=== PATIENT | male | born 1985 | race Caucasian/White ===

== ENCOUNTER → 2016-03-14 | Outpatient (CLI) | payer OTHER ==
[~2016-03-14] MED LIST: ZCR40 PO
--- NOTE | 2016-03-14 08:55 | DIAGNOSTIC IMAGING REPORT ---
RIGHT FOOT 3 VIEWS CLINICAL HISTORY: Foot pain. FINDINGS: 3 views of the right foot are obtained. No prior studies are available for comparison at the time of dictation. The skeletal structures are well mineralized. No acute fracture is seen. There is cortical thickening seen involving the mid shaft of the second metatarsal. No periosteal reaction is seen. The joint spaces of the foot appear well-maintained. There is a tiny dorsal calcaneal enthesophyte. The overlying soft tissues are within normal limits. IMPRESSION: 1. Cortical thickening is seen involving the mid shaft of the second metatarsal. This could represent the sequelae of remote trauma or a healed stress fracture. Clinical correlation will be essential. Correlation with any prior outside imaging studies is recommended. Consider short-term radiographic follow-up for reassessment if pain persists. 2. No acute fracture is identified. Electronically signed by: Michael Toure M.D. 03/14/2016 8:54 AM Dictated Date/Time: 03/14/2016 8:52 AM
[2016-03-14 11:07] LABS: BASO % 0.3 %; BASO ABS # 0.02 K/uL (0-0.2); COMPLETE YES; EOS % 1.2 %; HEMATOCRIT 40.3 % (42-52); IG% 0.2 %; LYMPH % 36.9 %; LYMPH ABS # 2.16 K/uL (1.2-3.4); MEAN CELL VOLUME 87.4 fL (80-100); MEAN CORPUSCULAR HEMOGLOBIN 30.4 pg (25-34); MEAN CORPUSCULAR HGB CONC 34.7 g/dl (32-36); MEAN PLATELET VOLUME 11.4 fL (7.4-10.4); MONO % 5.6 %; NEUT % 55.8 %; PLATELET COUNT 167 K/uL (130-400); RED BLOOD COUNT 4.61 M/uL (4.7-6.1); WHITE BLOOD COUNT 5.86 K/uL (4.8-10.8)
[2016-03-14 12:15] LABS: LYME DISEASE AB IGG NEG (NEG); LYME DISEASE AB IGM NEG (NEG)
[2016-03-14 13:21] LABS: BLOOD UREA NITROGEN 18 mg/dl (7-18); BUN/CREATININE RATIO 20.1 (10-20); C-REACTIVE PROTEIN < 0.29 mg/dl (0-0.29); CALCIUM 8.6 mg/dl (8.5-10.1); CARBON DIOXIDE 23 mmol/L (21-32); CHLORIDE 109 mmol/L (98-107); CREATININE 0.91 mg/dl (0.60-1.40); GLUCOSE 93 mg/dl (70-99); SODIUM 143 mmol/L (136-145); URIC ACID 7.7 mg/dl (2.6-7.2)
== END | disposition home or self-care (01) ==
LOC: C.RADBC 08:19
PROVIDERS: ATTEND Nurse Practitioner Family
DX: M79.671 Pain in right foot (principal); R93.7 Abnormal findings on diagnostic imaging of other parts of musculoskeletal system

== ENCOUNTER → 2016-05-02 | Outpatient (CLI) | payer OTHER ==
[2016-05-02 11:19] LABS: ALT/SGPT 57 U/L (12-78); AST/SGOT 19 U/L (15-37); BLOOD UREA NITROGEN 14 mg/dl (7-18); BUN/CREATININE RATIO 14.5 (10-20); CALCIUM 8.7 mg/dl (8.5-10.1); CARBON DIOXIDE 30 mmol/L (21-32); CHLORIDE 108 mmol/L (98-107); CREATININE 0.99 mg/dl (0.60-1.40); GLUCOSE 101 mg/dl (70-99); POTASSIUM 4.3 mmol/L (3.5-5.1); SODIUM 143 mmol/L (136-145)
[2016-05-02 11:22] LABS: ALB/GLOB RATIO 1.3 (0.9-2); ALKALINE PHOSPHATASE 69 U/L (45-117); CHOLESTEROL 123 mg/dl (0-200); HDL CHOLESTEROL 41 mg/dl; LDL CHOLESTEROL CALCULATED 47 mg/dl; TRIGLYCERIDES 174 mg/dl (0-150); VERY LOW DENSITY LIPOPROT CALC 35 mg/dl
== END | disposition home or self-care (01) ==
LOC: C.LABBC 08:28
PROVIDERS: ATTEND Family Medicine
DX: E78.5 Hyperlipidemia, unspecified (principal); Z83.2 Family history of diseases of the blood and blood-forming organs and certain disorders involving the immune mechanism

== ENCOUNTER → 2016-06-08 | Day surgery (SDC) | payer OTHER ==
[2016-05-31 15:06] VITALS: BMI 26.0
[~2016-06-08] VITALS: Ht 172.7 cm; Wt 77.3 kg
[~2016-06-08] MED LIST changes: +LIDOCAINE HCL 2% 2 ML VIAL (20MG/ML) ONE; +MIDAZOLAM HCL 1 MG/ML 2ML VIAL ONE; +PROPOFOL IV EMULSION 10 MG/ML 20 ML VIAL IV ONE; +SODIUM CHLORIDE 0.9% 500ML 500 ML IV ONE
[2016-06-08 10:57] VITALS: Ht 172.7 cm; Wt 77.3 kg
--- NOTE | 2016-06-08 11:29 | Endo History and Physical ---
History & Physical Date of Service: Jun 08, 2016. Chief Complaint: COLITIS Referring Physician: KHAI GALO History of Present Illness 30 yo CM who presents for colonoscopy secondary to colitis. Past Surgical History Hx Cardiac Surgery: No Hx Internal Defibrillator: No Hx Pacemaker: No Hx Abdominal Surgery: Yes (RT/LT INGUINAL HERNIA REPAIR) Hx of Implantable Prosthesis: No Hx Post-Op Nausea and Vomiting: No Hx Cancer Surgery: No Hx Thoracic Surgery: No Hx Orthopedic: No Hx Urinary Tract Surgery: No Family History IBD Social History Smoking Status: Never Smoker Hx Substance Use: No Hx Alcohol Use: Yes (OCCASIONAL) Allergies Coded Allergies: No Known Allergies (Verified , 06/08/16) Current Medications Reported Home Medications Medications Dose Route/Sig Max Daily Dose Days Date Category Simvastatin 40 Mg Tab 40 Mg PO QPM 09/16/13 Reported Vital Signs Weight (Kilograms): 77.27 Height (Feet): 5 Height (Inches): 8 Date Time Temp Pulse Resp B/P Pulse Ox O2 Delivery O2 Flow Rate FiO2 06/08/16 11:00 36.7 94 20 137/80 97 Room Air Physical Exam General Appearance: WD/WN, no apparent distress Respiratory/Chest: Auscultation: breath sounds normal Cardiovascular: Heart Auscultation: RRR Abdomen: Bowel Sounds: normal Inspection & Palpation: soft, non-distended, no tenderness, guarding & rebound Assessment and Plan Assessment: 30 yo CM who presents for colonoscopy secondary to colitis. Plan: Proceed with colonoscopy.
--- NOTE | 2016-06-08 12:02 | Discharge Instructions ---
Endoscopy Patient Instructions Date / Procedure(s) Performed Jun 08, 2016. Colonoscopy Allergy Information Coded Allergies: No Known Allergies (Verified , 06/08/16) Discharge Date / Findings Jun 08, 2016. Normal colonoscopy with random colon biopsies Medication Instructions OK to resume all medications today as prescribed Reported Home Medications Medications Dose Route/Sig Max Daily Dose Days Date Category Simvastatin 40 Mg Tab 40 Mg PO QPM 09/16/13 Reported Provider Instructions Activity Restrictions - No exercising or heavy lifting for 24 hours. - Do not drink alcohol the day of the procedure. - Do not drive a car or operate machinery until the day after the procedure. - Do not make any important decisions or sign important papers in 24 hours after the procedure. Following Day: - Return to full activity which may include returning to work/school. Diet Start your diet with liquids and light foods (jello, soup, juice, toast). Then eat your usual diet if not nauseated. Treatment For Common After Affects For mild abdominal pain, bloating, or excessive gas: - Rest - Eat lightly - Lie on right side Follow-Up Information Follow-up with KHAI GALO as scheduled Anesthesia Information What You Should Know You have had a procedure that required some medicine to reduce anxiety and discomfort. This treatment is called moderate sedation. After receiving the treatment, you may be sleepy, but you will be able to breathe on your own. The effects of the treatment may last for several hours. Follow these instructions along with Activity/Diet recommendations noted above: * Do NOT do anything where dizziness or clumsiness would be dangerous. * Rest quietly at home today, then you can be up and about tomorrow. * Have a responsible person stay with you the rest of today. * You may have had an I.V. today. If so, you may take the dressing off later today. Recommendations Call your doctor if: * Trouble breathing * Continuous vomiting for more than 24 hours * Temperature above 101 degrees * Severe abdominal pain or bloating * Pain not relieved by pain medicine ordered * There is increased drainage or redness from any incision * A large amount of rectal bleeding greater than 2-3 tablespoons. (If you had a polyp/s removed or have hemorrhoids, a small amount of blood - from the rectum is to be expected.) * You have any unanswered questions or concerns. IN THE EVENT OF A SERIOUS EMERGENCY, GO TO THE NEAREST EMERGENCY ROOM Your discharge instructions were prepared by provider Da Roman. Patient Instructions Signature Page Mahad Nuno Patient (or Guardian) Signature/Date: I have read and understand the instructions given to me by my caregivers. Caregiver/RN/Doctor Signature/Date: The above-named patient and/or guardian has received patient instructions on this date. + Original Patient Signature Page (only) stays with chart. Please make copy for patient.
--- NOTE | 2016-06-08 12:10 | GI REPORT ---
Procedure Date: 06/08/2016 11:41 AM Procedure: Colonoscopy Indications: Follow-up of colitis Medicines: Monitored Anesthesia Care Complications: No immediate complications. Estimated Blood Loss: Estimated blood loss: none. Procedure: Pre-Anesthesia Assessment: - Prior to the procedure, a History and Physical was performed, and patient medications and allergies were reviewed. The patient's tolerance of previous anesthesia was also reviewed. The risks and benefits of the procedure and the sedation options and risks were discussed with the patient. All questions were answered, and informed consent was obtained. Prior Anticoagulants: The patient has taken no previous anticoagulant or antiplatelet agents. ASA Grade Assessment: II - A patient with mild systemic disease. After reviewing the risks and benefits, the patient was deemed in satisfactory condition to undergo the procedure. After I obtained informed consent, the scope was passed under direct vision. Throughout the procedure, the patient's blood pressure, pulse, and oxygen saturations were monitored continuously. The scope was introduced through the anus and advanced to the terminal ileum. The colonoscopy was performed without difficulty. The patient tolerated the procedure well. The quality of the bowel preparation was good. The ileocecal valve, appendiceal orifice, and rectum were photographed. Findings: The colon (entire examined portion) appeared normal. Several random biopsies were obtained with cold forceps for histology in the entire colon. Impression: - The entire examined colon is normal. - Several random biopsies were obtained in the entire colon. Recommendation: - Resume previous diet. - Continue present medications. - Repeat colonoscopy for surveillance based on pathology results. - Return to primary care physician as previously scheduled. Da Roman DO 06/08/2016 12:08:48 PM This report has been signed electronically. Note Initiated On: 06/08/2016 11:41 AM I attest to the content of the Intraoperative Record and orders documented therein, exceptions below
[2016-06-08 12:47] VITALS: BP 111/79; PULSE 86; O2SAT 100
--- NOTE | 2016-06-08 13:33 | Anesthesiology Progress Note ---
Anesthesia Post Op Note Date & Time Jun 08, 2016 at 13:32 Vital Signs Pain Intensity: 0 Vital Signs Past 12 Hours Date Time Temp Pulse Resp B/P Pulse Ox O2 Delivery O2 Flow Rate FiO2 06/08/16 12:47 86 20 111/79 100 Room Air 06/08/16 12:32 86 20 108/72 100 Room Air 06/08/16 12:16 89 20 100/72 96 Room Air 06/08/16 12:01 36.7 94 20 107/70 96 Room Air 06/08/16 11:00 36.7 94 20 137/80 97 Room Air Notes Mental Status: alert / awake / arousable, participated in evaluation Pt Amnestic to Procedure: Yes Nausea / Vomiting: adequately controlled Pain: adequately controlled Airway Patency, RR, SpO2: stable & adequate BP & HR: stable & adequate Hydration State: stable & adequate Anesthetic Complications: no major complications apparent
== END | disposition home or self-care (01) ==
LOC: C.GI 10:47
PROVIDERS: ATTEND Internal Medicine
DX: K52.9 Noninfective gastroenteritis and colitis, unspecified (principal); Z79.899 Other long term (current) drug therapy

== ENCOUNTER → 2016-11-21 | Outpatient (CLI) | payer OTHER ==
[~2016-11-21] MED LIST changes: -LIDOCAINE HCL 2% 2 ML VIAL (20MG/ML) ONE; -MIDAZOLAM HCL 1 MG/ML 2ML VIAL ONE; -PROPOFOL IV EMULSION 10 MG/ML 20 ML VIAL IV ONE; -SODIUM CHLORIDE 0.9% 500ML 500 ML IV ONE
[2016-11-21 12:28] LABS: BASO % 0.6 %; BASO ABS # 0.04 K/uL (0-0.2); COMPLETE YES; IG% 0.3 %; LYMPH % 37.1 %; LYMPH ABS # 2.49 K/uL (1.2-3.4); MEAN CELL VOLUME 88.2 fL (80-100); MEAN CORPUSCULAR HEMOGLOBIN 30.9 pg (25-34); MEAN PLATELET VOLUME 11.2 fL (7.4-10.4); PLATELET COUNT 199 K/uL (130-400); RED BLOOD COUNT 4.76 M/uL (4.7-6.1); WHITE BLOOD COUNT 6.72 K/uL (4.8-10.8)
[2016-11-21 13:08] LABS: ALT/SGPT 60 U/L (12-78); AST/SGOT 19 U/L (15-37); BLOOD UREA NITROGEN 18 mg/dl (7-18); BUN/CREATININE RATIO 20.8 (10-20); CALCIUM 9.2 mg/dl (8.5-10.1); CARBON DIOXIDE 23 mmol/L (21-32); CHLORIDE 109 mmol/L (98-107); CHOLESTEROL 209 mg/dl (0-200); CREATININE 0.88 mg/dl (0.60-1.40); GLUCOSE 104 mg/dl (70-99); POTASSIUM 4.5 mmol/L (3.5-5.1); SODIUM 140 mmol/L (136-145)
[2016-11-21 13:14] LABS: ALB/GLOB RATIO 1.3 (0.9-2); ALKALINE PHOSPHATASE 72 U/L (45-117); HDL CHOLESTEROL 42 mg/dl; LDL CHOLESTEROL CALCULATED 122 mg/dl; TRIGLYCERIDES 223 mg/dl (0-150); VERY LOW DENSITY LIPOPROT CALC 45 mg/dl
== END | disposition home or self-care (01) ==
LOC: C.LABPVFM 09:51
PROVIDERS: ATTEND Family Medicine
DX: Z00.00 Encounter for general adult medical examination without abnormal findings (principal); E78.5 Hyperlipidemia, unspecified

== ENCOUNTER 2019-10-10 22:50 | Observation (INO) ==
[2019-10-10] MEDS ORDERED: lisinopriL 10 MG TAB PO STA (23:03)
--- NOTE | 2019-10-10 23:07 | Emergency Department Note ---
History of Present Illness General Chief Complaint: Chest Pain Stated Complaint: CHEST PAINS & CHEST DISCOMFORT Time Seen by Provider: 10/10/19 22:54 Source: patient, family, RN notes reviewed and old records reviewed Mode of arrival: ambulatory Limitations: no limitations History of Present Illness Provider Complaint: chest pain Onset (ago): hour(s) greater than 10 Time: 12:00 Duration: now resolved Onset: during rest and after eating Pain Location: left chest Pain Radiation: LUE Severity: moderate Maximum Pain Intensity: 0 Current Pain Intensity: 0 Quality: + heaviness Relieved By: + nothing Exacerbated By: + nothing Context: no recent illness, no recent surgery, no recent immobilization, no recent travel, no trauma/injury and no new medications Associated symptoms: + nausea and + diaphoresis; no dyspnea and no palpitations Treatments prior to arrival: none This is a 34-year-old male who presents emergency department complaining of left-sided chest pain that radiated into his left arm. The patient reports the pain started while he was eating lunch sitting at his desk approximate 11 hours ago. He reports the pain lasted for approximately 2 to 3 hours and resolved. He has not had the pain since. He describes the pain as a pressure. He reports nothing made the pressure better or worse. Home Medications Home Medications Medication Instructions Recorded Confirmed Type simvastatin 40 mg tablet 40 mg PO DAILY #90 tab 08/06/19 10/10/19 Rx Allergies Allergy/AdvReac Type Severity Reaction Status Date / Time No Known Allergies Allergy Unverified 10/10/19 22:59 Past Med/Surg History Medical History Dyslipidemia Hemorrhoids Surgical History History of inguinal hernia repair Family History Uncle Cardiac disorder Family/Other Crohn's disease Cousin Sister Factor V Leiden mutation Father Hyperlipidemia Grandfather (Paternal) Myocardial infarction Denies family history of Ovarian cancer Prostate cancer Breast cancer Colorectal cancer Social History Smoking Status: Never smoker Hx Alcohol Use: Yes Hx Substance Use: No marital status: Current Living Situation: Spouse and Family current occupational status: employed Feels Safe at Home: Yes Dental Care, Regularly: Yes Seatbelt Use: always Sunscreen Use: No Review of Systems A total of 10 systems reviewed and were otherwise negative Physical Exam Vital Signs Vital Signs - 24 hr 10/10/19 22:50 10/10/19 23:05 10/10/19 23:30 Temperature 37.0 C Temperature Source Oral Pulse Rate 85 92 H 100 H Pulse Rate from SpO2 Sensor 91 H 94 H Pulse Rhythm Regular Respiratory Rate 18 21 18 Respiratory Effort / Characteristics Non-Labored Spontaneous Respiratory Depth Normal Respiratory Pattern Regular Blood Pressure 186/113 H 164/113 H 157/118 H Blood Pressure Mean 137 137 127 Pulse Oximetry 100 97 97 Oxygen Delivery Method Room Air Room Air Sepsis Recent Fever Within 48 Hours No Sepsis New/Unexplained Change in Mental Status N/A Sepsis Action Taken by Nursing No Action Required 10/11/19 00:00 10/11/19 00:30 10/11/19 01:00 Temperature Temperature Source Pulse Rate 89 93 H 81 Pulse Rate from SpO2 Sensor 91 H 83 Pulse Rhythm Respiratory Rate 23 20 21 Respiratory Effort / Characteristics Respiratory Depth Respiratory Pattern Blood Pressure 153/109 H 137/99 129/94 Blood Pressure Mean 121 105 106 Pulse Oximetry 96 96 Oxygen Delivery Method Sepsis Recent Fever Within 48 Hours Sepsis New/Unexplained Change in Mental Status Sepsis Action Taken by Nursing 10/11/19 01:31 Temperature Temperature Source Pulse Rate 79 Pulse Rate from SpO2 Sensor 79 Pulse Rhythm Respiratory Rate 20 Respiratory Effort / Characteristics Respiratory Depth Respiratory Pattern Blood Pressure 128/87 Blood Pressure Mean 107 Pulse Oximetry 97 Oxygen Delivery Method Sepsis Recent Fever Within 48 Hours Sepsis New/Unexplained Change in Mental Status Sepsis Action Taken by Nursing VITAL SIGNS - Vital signs and nursing notes were reviewed. GENERAL - 34-year-old male appearing stated age who is in no acute distress. Communicates well with provider and answers questions appropriately. SKIN - Without rashes. HEAD - NC/AT. EYES - PERRL with EOMI bilaterally. Sclera anicteric. Palpebral conjunctiva pink and moist with no injection noted. EARS - No deformities of external structures noted on gross examination bilaterally. No pain elicited with palpation of the tragus bilaterally. External auditory canals without discharge or otorrhea. Tympanic membranes pearly vivar without retraction or bulging. No fluid or purulent material visualized behind the TM. Handle of malleus, umbo, cone of light, pars tensa/flaccid all easily visualized. NOSE - Midline and without cyanosis. No epistaxis or purulent drainage noted. Septum midline without deviation or septal hematoma noted. MOUTH/OROPHARYNX - Without perioral cyanosis. Buccal mucosa pink and moist and without leukoplakia. Tongue midline with equal elevation of palate bilaterally. No tonsillar hypertrophy, erythema, or exudates noted. dentition noted. NECK - Neck with FROM. Supple to palpation. lymphadenopathy noted. No nuchal rigidity. LUNGS - Chest wall symmetric without accessory muscle use, intercostals retractions, or central cyanosis. Normal vesicular breath sounds CTA B/L. No wheezes, rales, or rhonchi appreciated. CARDIAC - RRR with S1/S2. No murmur, rubs, or gallops appreciated. ABDOMEN - Abdominal contour without pulsations or visible masses. BS norm oactive all four quadrants. No tenderness, palpable masses, hepatosplenomegaly, or ascites noted. EXTREMITIES - No clubbing or peripheral cyanosis. No pretibial edema present. +3/5 radial, posterior tibial, and dorsalis pedis pulses palpated throughout. +5/5 strength noted in UE/LE bilaterally. NEUROLOGIC - Cranial nerves II through XII grossly intact. Sensory intact to light touch throughout. Patellar reflexes +2/4. PSYCH - A&Ox3 and cooperates fully with examiner. Pt is very pleasant and in teracts well with examiner. Course Administered Medications Discontinued Medications Lisinopril (Lisinopril 10 Mg Tab) 10 mg PO NOW STA Stop: 10/10/19 23:04 Last Admin: 10/10/19 23:11 Dose: 10 mg Documented by: [id number] Medical Decision Making Differential Diagnosis + pneumothorax, + unstable angina pectoris, + atypical chest pain, + costochondritis, + chest pain, + myocarditis, + pericarditis, + pulmonary embolism and + pneumonia Medical Records Attestation: I reviewed the patient's medical records. Home Medications Current Medication List: was personally reviewed by me Laboratory Data Result diagrams: 10/10/19 23:05 10/10/19 23:05 Labs: Lab Results 10/10/19 10/10/19 10/10/19 Range/Units 23:05 23:05 23:05 WBC 8.47 (4.8-10.8) K/uL RBC 4.84 (4.7-6.1) M/uL Hgb 15.3 (14.0-18.0) g/dL Hct 43.4 (42-52) % MCV 89.7 (80-100) fL MCH 31.6 (25-34) pg MCHC 35.3 (32-36) g/dL RDW Std Deviation 41.7 (36.4-46.3) fL RDW Coeff of Kimberly 12.7 (11.5-14.5) % Plt Count 202 (130-400) K/uL MPV 11.0 H (7.4-10.4) fL Immature Gran % (Auto) 0.1 % Neut % (Auto) 48.1 % Lymph % (Auto) 41.8 % [place] % (Auto) 8.3 % Eos % (Auto) 1.2 % Baso % (Auto) 0.5 % Neut # (Auto) 4.08 (1.4-6.5) K/uL Lymph # (Auto) 3.54 H (1.2-3.4) K/uL [place] # (Auto) 0.70 H (0.11-0.59) K/uL Eos # (Auto) 0.10 (0-0.5) K/uL Baso # (Auto) 0.04 (0-0.2) K/uL Immature Gran # (Auto) 0.01 (0.00-0.02) K/uL PT 10.0 (9.0-12.0) Seconds INR 0.9 (0.9-1.1) APTT 26.8 (21.0-31.0) Seconds PTT Ratio 1.0 D-Dimer < 190 (0-500) ug/L FEU Sodium 140 (136-145) mmol/L Potassium 3.8 (3.5-5.1) mmol/L Chloride 107 (98-107) mmol/L Carbon Dioxide 26 (21-32) mmol/L Anion Gap 7.0 (3-11) BUN 16 (7-18) mg/dl Creatinine 1.05 (0.6-1.4) mg/dl Est Cr Clr Drug Dosing 95.0 ml/min Est GFR ( Amer) 106.1 Est GFR (Non-Af Amer) 91.5 BUN/Creatinine Ratio 15.0 (10-20) Glucose 110 H (70-99) mg/dl Calcium 9.9 (8.5-10.1) mg/dl Total Bilirubin 0.3 (0.2-1) mg/dl AST 37 (15-37) U/L ALT 105 H (12-78) U/L Alkaline Phosphatase 82 (45-117) U/L Total Creatine Kinase 106 (39-308) U/L CK-MB (CK-2) < 1.0 (0.5-3.6) ng/ml CK/CKMB % Calc TNP Troponin I < 0.015 (0-0.045) ng/ml Total Protein 8.6 H (6.4-8.2) gm/dl Albumin 4.7 (3.4-5.0) gm/dl Globulin 3.9 (2.5-4.0) gm/dl Albumin/Globulin Ratio 1.2 (0.9-2) Lipase 92 (73-393) U/L Lyme Disease IgG Ab (Negative) Lyme Disease IgM Ab (Negative) 10/10/19 10/11/19 Range/Units 23:05 00:36 WBC (4.8-10.8) K/uL RBC (4.7-6.1) M/uL Hgb (14.0-18.0) g/dL Hct (42-52) % MCV (80-100) fL MCH (25-34) pg MCHC (32-36) g/dL RDW Std Deviation (36.4-46.3) fL RDW Coeff of Kimberly (11.5-14.5) % Plt Count (130-400) K/uL MPV (7.4-10.4) fL Immature Gran % (Auto) % Neut % (Auto) % Lymph % (Auto) % [place] % (Auto) % Eos % (Auto) % Baso % (Auto) % Neut # (Auto) (1.4-6.5) K/uL Lymph # (Auto) (1.2-3.4) K/uL [place] # (Auto) (0.11-0.59) K/uL Eos # (Auto) (0-0.5) K/uL Baso # (Auto) (0-0.2) K/uL Immature Gran # (Auto) (0.00-0.02) K/uL PT (9.0-12.0) Seconds INR (0.9-1.1) APTT (21.0-31.0) Seconds PTT Ratio D-Dimer (0-500) ug/L FEU Sodium (136-145) mmol/L Potassium (3.5-5.1) mmol/L Chloride (98-107) mmol/L Carbon Dioxide (21-32) mmol/L Anion Gap (3-11) BUN (7-18) mg/dl Creatinine (0.6-1.4) mg/dl Est Cr Clr Drug Dosing ml/min Est GFR ( Amer) Est GFR (Non-Af Amer) BUN/Creatinine Ratio (10-20) Glucose (70-99) mg/dl Calcium (8.5-10.1) mg/dl Total Bilirubin (0.2-1) mg/dl AST (15-37) U/L ALT (12-78) U/L Alkaline Phosphatase (45-117) U/L Total Creatine Kinase (39-308) U/L CK-MB (CK-2) (0.5-3.6) ng/ml CK/CKMB % Calc Troponin I < 0.015 (0-0.045) ng/ml Total Protein (6.4-8.2) gm/dl Albumin (3.4-5.0) gm/dl Globulin (2.5-4.0) gm/dl Albumin/Globulin Ratio (0.9-2) Lipase (73-393) U/L Lyme Disease IgG Ab Negative (Negative) Lyme Disease IgM Ab Negative (Negative) Imaging Data Chest x-ray: Attestation: I personally reviewed and interpreted this imaging study as follows: My impression: 1 view the chest was interpreted by me shows no evidence of pneumonia congestion or pneumothorax. ECG Data Attestation: I personally reviewed and interpreted this ECG as follows: Indication: chest pain Rate (beats per minute): 96 Rhythm: normal sinus Findings: no ST depression and no ST elevation Comparison ECG Date: from (10/18/2015) Change: no significant change Additional Comments: Repeat EKG shows a normal sinus rhythm normal EKG no ST elevation or depression QTC is 442 ventricular rate is 80. This is unchanged from the previous EKG. MDM Narrative Patient was seen and evaluated as above in room A3. Review was performed of nursing notes and vital signs. I did review pertinent previous visits and patient history. After obtaining a thorough history and physical examination the above work up was performed. This is a 34-year-old male who presents emergency department complaining of chest pain that occurred several hours ago. In addition the patient's blood pressure is also grossly elevated. He was given lisinopril for his blood pressure. Serial EKGs as well as serial troponins were drawn on this patient in the emergency department. His Lyme test is also negative. I did give the patient the option of being discharged home however he would like to be observed. I did discuss the case with the hospitalist service who did agree to admit the patient. Patient and family are in agreement with the treatment plan. While in the department, I personally reevaluated the patient several times and each time the patient was found to be resting comfortably. The patient was educated upon management, educated upon todays findings/results, educated upon importance of follow up from today's visit, educated upon symptoms in which to return, had questions answered prior to discharge, verbalized understanding, and was discharged home in good condition. An order was placed for continuous cardiac monitoring. The monitor shows a rate of 79 with Normal Sinus rhythm. The patient was evaluated during the global COVID-19 pandemic, and that diagnosis was suspected/considered upon their initial presentation. Their evaluation, treatment and testing was consistent with current guidelines for patients who present with complaints or symptoms that may be related to COVID- 19. Impression & Plan Chest pain, Hypertension Discharge Plan Visit Data Chief Complaint: Chest Pain Stated Complaint: CHEST PAINS & CHEST DISCOMFORT ED Provider: Damon Ragsdale Discharge Problem: Chest pain, Hypertension Forms Stand Alone Forms: [employer] Prescriptions Prescriptions: No Action simvastatin 40 mg tablet 40 mg PO DAILY Qty: 90 RF: 0 Discharge Problem: Chest pain Qualifiers: Chest pain type: unspecified Qualified Code(s): R07.9 - Chest pain, unspecified Hypertension Qualifiers: Hypertension type: unspecified Qualified Code(s): I10 - Essential (primary) hypertension
[2019-10-10 23:18] LABS: Basophils # (auto) 0.04 K/uL (0-0.2); Basophils % (auto) 0.5 %; Eosinophils % (auto) 1.2 %; Hematocrit (blood only) 43.4 % (42-52); Hemoglobin 15.3 g/dL (14.0-18.0); Immature Granulocytes # (auto) 0.01 K/uL (0.00-0.02); Immature Granulocytes % (auto) 0.1 %; Lymphocytes # (auto) 3.54 K/uL (1.2-3.4); Lymphocytes % (auto) 41.8 %; Mean Corpuscular Hemoglobin 31.6 pg (25-34); Mean Corpuscular Hgb Conc 35.3 g/dL (32-36); Mean Corpuscular Volume 89.7 fL (80-100); Monocytes % (auto) 8.3 %; Neutrophils # (auto) 4.08 K/uL (1.4-6.5); Neutrophils % (auto) 48.1 %; Platelet Count 202 K/uL (130-400); RDW Coefficient of Variation 12.7 % (11.5-14.5); RDW Standard Deviation 41.7 fL (36.4-46.3); Red Blood Count 4.84 M/uL (4.7-6.1); White Blood Count 8.47 K/uL (4.8-10.8)
[2019-10-10 23:29] LABS: D Dimer < 190 ug/L FEU (0-500); INR 0.9 (0.9-1.1); Partial Thromboplastin Time 26.8 Seconds (21.0-31.0)
[2019-10-10 23:36] LABS: Alanine Aminotransferase 105 U/L (12-78); Albumin Level 4.7 gm/dl (3.4-5.0); Aspartate Aminotransferase 37 U/L (15-37); Blood Urea Nitrogen 16 mg/dl (7-18); Calcium 9.9 mg/dl (8.5-10.1); Carbon Dioxide 26 mmol/L (21-32); Chloride 107 mmol/L (98-107); Est GFR (African American) 106.1; Est GFR (Non-African American) 91.5; Glucose 110 mg/dl (70-99); Lipase 92 U/L (73-393); Potassium 3.8 mmol/L (3.5-5.1); Sodium 140 mmol/L (136-145)
[2019-10-10 23:42] LABS: Albumin Globulin Ratio 1.2 (0.9-2); Alkaline Phosphatase 82 U/L (45-117); Bilirubin,Total 0.3 mg/dl (0.2-1); Creatine Kinase 106 U/L (39-308); Creatine Kinase MB < 1.0 ng/ml (0.5-3.6); Globulin 3.9 gm/dl (2.5-4.0); Total Protein 8.6 gm/dl (6.4-8.2); Troponin I < 0.015 ng/ml (0-0.045)
[2019-10-11 01:19] LABS: Lyme Ab IgG w/WB Rflx Negative (Negative); Lyme Ab IgM w/WB Rflx Negative (Negative)
--- NOTE | 2019-10-11 02:09 | History & Physical Report ---
Date of Service October 11, 2019 Assessment & Plan (1) Chest pain: 34-year-old male with history of dyslipidemia, family history significant for premature heart disease (uncle with OH at age 36, grandfather x2 with MIs in their 50s) presenting with chest pain. Troponin x1-, EKG with no acute ischemic changes. Patient is presently chest pain-free. He reports being active at home with no functional limitations or exertional symptoms. ACS unlikely however, given patient's family history and personal history of hyperlipidemia will continue to observe in the hospital setting Observation to medical floor Troponin every 8 hours x3 sets Check lipid panel and hemoglobin A1c with morning labs Continue simvastatin 40 mg p.o. daily Aspirin 81 mg p.o. daily Stress echocardiogram ordered for the morning after cardiac enzymes negative Present on Admission?: Yes (2) Elevated BP without diagnosis of hypertension: Patient with elevated blood pressure upon arrival. He was administered lisinopril 10 mg p.o. x1 dose in the ER with improvement. He does not carry a diagnosis of hypertension Continue to monitor blood pressure. We will hold off on additional medication at this time Present on Admission?: Yes (3) Dyslipidemia: Chronic. Check lipid panel Continue simvastatin FENHep-Lock, electrolytes within normal limits, n.p.o. for now Prophylaxislow risk for DVT Codefull Dispositionobservation to medical floor telemetry Present on Admission?: Yes History of Present Illness Chief Complaint: Chest pain Primary Care Provider: Savannah Castillo MD Mahad Nuno is a 34-year-old male with history of hyperlipidemia presenting with chest discomfort that started yesterday afternoon. Patient states that he was at work at his desk when he developed sudden onset of left- sided chest discomfort, 2-3/10 in severity with radiation down his left arm. Discomfort associated with mild nausea, and diaphoresis. Pain nonpleuritic, non-positional, nonexertional. The discomfort initially lasted 2 hours then reoccurred throughout the day. Presently no chest discomfort. Patient denies fever/chills/cough/shortness of breath/abdominal pain/vomiting/diarrhea/constipation. No personal history of heart disease. No prior stress testing or cardiac intervention. No recent travel or concerns for exposure to COVID-19. On arrival to the ER patient found to be afebrile, hypertensive at 186/113. ER course: Lisinopril 10 mg Allergies Allergy/AdvReac Type Severity Reaction Status Date / Time No Known Allergies Allergy Unverified 10/10/19 22:59 Home Medications Home Medications Medication Instructions Recorded Confirmed Type simvastatin 40 mg tablet 40 mg PO DAILY #90 tab 08/06/19 10/10/19 Rx Past Med/Surg History Medical History Dyslipidemia Hemorrhoids Surgical History History of inguinal hernia repair Family History Uncle Cardiac disorder Family/Other Crohn's disease Cousin Sister Factor V Leiden mutation Father Hyperlipidemia Grandfather (Paternal) Myocardial infarction Denies family history of Ovarian cancer Prostate cancer Breast cancer Colorectal cancer Social History Smoking Status: Never smoker Hx Alcohol Use: Yes Hx Substance Use: No marital status: Current Living Situation: Spouse and Family current occupational status: employed Feels Safe at Home: Yes Dental Care, Regularly: Yes Seatbelt Use: always Sunscreen Use: No Review of Systems Review of Systems: All systems reviewed & are unremarkable except as noted in HPI & below Physical Exam Physical Exam: General: patient resting comfortably, NAD, non-toxic in appearance, AA&O x 4 Skin: warm, dry, intact, no rashes or lesions HEENT: NC/AT, PERRL, EOMI, anicteric sclera, conjunctiva without injection, external ear normal to inspection and nontender, nares patent, moist mucus membranes, dentition intact, no oropharyngeal lesions, neck supple, trachea midline, no LAD, no thyromegaly, no JVD Heart: +S1/S2, regular, no m/r/g, no reproducible chest wall pain Lungs: equal air entry bilaterally, no rales/rhonchi/wheezes Abd: +BS, soft, NT/ND, no masses/organomegaly/ascites, no epigastric discomfort Ext: warm, 2+ pulses in UE/LE bilaterally, no clubbing/cyanosis or edema Neuro: nonfocal, patient AA&O x 4, speech intact, no facial droop, moving all extremities on command with equal strength 5/5 Results & Data Results & Data ([facility]) Vital Signs (Past 12 Hours) Vital Signs Temp Pulse Resp BP Pulse Ox 10/11/19 01:31 79 20 128/87 97 10/11/19 01:00 81 21 129/94 96 10/11/19 00:30 93 H 20 137/99 10/11/19 00:00 89 23 153/109 H 96 10/10/19 23:30 100 H 18 157/118 H 97 10/10/19 23:05 92 H 21 164/113 H 97 10/10/19 22:50 37.0 C 85 18 186/113 H 100 Laboratory Results Lab Results 10/10/19 10/10/19 10/10/19 Range/Units 23:05 23:05 23:05 WBC 8.47 (4.8-10.8) K/uL RBC 4.84 (4.7-6.1) M/uL Hgb 15.3 (14.0-18.0) g/dL Hct 43.4 (42-52) % MCV 89.7 (80-100) fL MCH 31.6 (25-34) pg MCHC 35.3 (32-36) g/dL RDW Std Deviation 41.7 (36.4-46.3) fL RDW Coeff of Kimberly 12.7 (11.5-14.5) % Plt Count 202 (130-400) K/uL MPV 11.0 H (7.4-10.4) fL Immature Gran % (Auto) 0.1 % Neut % (Auto) 48.1 % Lymph % (Auto) 41.8 % [place] % (Auto) 8.3 % Eos % (Auto) 1.2 % Baso % (Auto) 0.5 % Neut # (Auto) 4.08 (1.4-6.5) K/uL Lymph # (Auto) 3.54 H (1.2-3.4) K/uL [place] # (Auto) 0.70 H (0.11-0.59) K/uL Eos # (Auto) 0.10 (0-0.5) K/uL Baso # (Auto) 0.04 (0-0.2) K/uL Immature Gran # (Auto) 0.01 (0.00-0.02) K/uL PT 10.0 (9.0-12.0) Seconds INR 0.9 (0.9-1.1) APTT 26.8 (21.0-31.0) Seconds PTT Ratio 1.0 D-Dimer < 190 (0-500) ug/L FEU Sodium 140 (136-145) mmol/L Potassium 3.8 (3.5-5.1) mmol/L Chloride 107 (98-107) mmol/L Carbon Dioxide 26 (21-32) mmol/L Anion Gap 7.0 (3-11) BUN 16 (7-18) mg/dl Creatinine 1.05 (0.6-1.4) mg/dl Est Cr Clr Drug Dosing 95.0 ml/min Est GFR ( Amer) 106.1 Est GFR (Non-Af Amer) 91.5 BUN/Creatinine Ratio 15.0 (10-20) Glucose 110 H (70-99) mg/dl Calcium 9.9 (8.5-10.1) mg/dl Total Bilirubin 0.3 (0.2-1) mg/dl AST 37 (15-37) U/L ALT 105 H (12-78) U/L Alkaline Phosphatase 82 (45-117) U/L Total Creatine Kinase 106 (39-308) U/L CK-MB (CK-2) < 1.0 (0.5-3.6) ng/ml CK/CKMB % Calc TNP Troponin I < 0.015 (0-0.045) ng/ml Total Protein 8.6 H (6.4-8.2) gm/dl Albumin 4.7 (3.4-5.0) gm/dl Globulin 3.9 (2.5-4.0) gm/dl Albumin/Globulin Ratio 1.2 (0.9-2) Lipase 92 (73-393) U/L Lyme Disease IgG Ab (Negative) Lyme Disease IgM Ab (Negative) 10/10/19 10/11/19 Range/Units 23:05 00:36 WBC (4.8-10.8) K/uL RBC (4.7-6.1) M/uL Hgb (14.0-18.0) g/dL Hct (42-52) % MCV (80-100) fL MCH (25-34) pg MCHC (32-36) g/dL RDW Std Deviation (36.4-46.3) fL RDW Coeff of Kimberly (11.5-14.5) % Plt Count (130-400) K/uL MPV (7.4-10.4) fL Immature Gran % (Auto) % Neut % (Auto) % Lymph % (Auto) % [place] % (Auto) % Eos % (Auto) % Baso % (Auto) % Neut # (Auto) (1.4-6.5) K/uL Lymph # (Auto) (1.2-3.4) K/uL [place] # (Auto) (0.11-0.59) K/uL Eos # (Auto) (0-0.5) K/uL Baso # (Auto) (0-0.2) K/uL Immature Gran # (Auto) (0.00-0.02) K/uL PT (9.0-12.0) Seconds INR (0.9-1.1) APTT (21.0-31.0) Seconds PTT Ratio D-Dimer (0-500) ug/L FEU Sodium (136-145) mmol/L Potassium (3.5-5.1) mmol/L Chloride (98-107) mmol/L Carbon Dioxide (21-32) mmol/L Anion Gap (3-11) BUN (7-18) mg/dl Creatinine (0.6-1.4) mg/dl Est Cr Clr Drug Dosing ml/min Est GFR ( Amer) Est GFR (Non-Af Amer) BUN/Creatinine Ratio (10-20) Glucose (70-99) mg/dl Calcium (8.5-10.1) mg/dl Total Bilirubin (0.2-1) mg/dl AST (15-37) U/L ALT (12-78) U/L Alkaline Phosphatase (45-117) U/L Total Creatine Kinase (39-308) U/L CK-MB (CK-2) (0.5-3.6) ng/ml CK/CKMB % Calc Troponin I < 0.015 (0-0.045) ng/ml Total Protein (6.4-8.2) gm/dl Albumin (3.4-5.0) gm/dl Globulin (2.5-4.0) gm/dl Albumin/Globulin Ratio (0.9-2) Lipase (73-393) U/L Lyme Disease IgG Ab Negative (Negative) Lyme Disease IgM Ab Negative (Negative) Diagnostic Findings Chest x-rayby my interpretation, trachea is midline air-filled, cardiac shadow within normal limits, no evidence of pulmonary edema, consolidation, pneumothorax. ECG Additional Comments: EKG normal sinus rhythm at 80 bpm, normal axis, OK = 136, QRS = 84, QTc = 442. No acute ischemic changes Code Status & VTE Plan Code Status Full code PG Care Time/CCT Total # of Minutes Spent Total Time Spent with Patient: Total time spent is greater than 50% in coordination of care (as documented) at patient's floor/unit and/or counseling patient: Coding Level of Care Code 62761 OBS Care - Level 2 Diagnoses Chest pain R07.9 Chest pain type: unspecified Elevated BP without diagnosis of hypertension R03.0 Dyslipidemia E78.5 (1) Chest pain Chest pain type: unspecified Qualified Code(s): R07.9 - Chest pain, unspecified
[2019-10-11] MEDS ORDERED: ONDANSETRON INJ 2 MG/ML 2 ML VIAL IV PRN (03:28)
[2019-10-11 06:43] LABS: Estimated Average Glucose 117 mg/dl; Hemoglobin A1C 5.7 % (4.5-5.6)
--- NOTE | 2019-10-11 06:48 | XRay Report ---
XR chest 1V portable CLINICAL HISTORY: Chest pain. COMPARISON STUDY: No previous studies for comparison. FINDINGS: Lung volumes are normal. Lungs are clear. There is no pneumothorax or pleural effusion. Car diac size is normal. Mediastinal contours are normal. There is no evidence for pulmonary edema. IMPRESSION: No acute cardiopulmonary findings. ACT 112: Negative or not required by law. Electronically signed by: Luis Fernando Wright M.D. 10/11/2019 6:47 AM
[2019-10-11 06:52] LABS: Chol HDL Ratio 4; Cholesterol 177 mg/dl (0-200); HDL Cholesterol 41 mg/dl; LDL Cholesterol Calculated 101 mg/dl; Triglycerides 175 mg/dl (0-150); VLDL Cholesterol 35 mg/dl
[2019-10-11] MEDS ORDERED: SIMVASTATIN 40 MG TAB PO SCH (09:00)
[2019-10-11] MEDS ORDERED: ASPIRIN 81 MG ECTAB PO SCH (09:00)
--- NOTE | 2019-10-11 09:34 | Electrocardiogram Report ---
Test Reason : Blood Pressure : / mmHG Vent. Rate : 096 BPM Atrial Rate : 096 BPM P-R Int : 130 ms QRS Dur : 084 ms QT Int : 336 ms P-R-T Axes : 046 066 040 degrees QTc Int : 424 ms Normal sinus rhythm Normal ECG When compared with ECG of 28-OCT-2015 19:14, No significant change was found Confirmed by Chintan Ramirez ([id number]) on 10/11/2019 9:34:13 AM Referred By: REFERRED SELF Confirmed By:Chintan Ramirez
--- NOTE | 2019-10-11 09:35 | Electrocardiogram Report ---
Test Reason : Blood Pressure : / mmHG Vent. Rate : 080 BPM Atrial Rate : 080 BPM P-R Int : 136 ms QRS Dur : 084 ms QT Int : 384 ms P-R-T Axes : 005 046 025 degrees QTc Int : 442 ms Normal sinus rhythm Normal ECG When compared with ECG of 10-OCT-2019 22:54, No significant change was found Confirmed by Chintan Ramirez ([id number]) on 10/11/2019 9:34:55 AM Referred By: REFERRED SELF Confirmed By:Chintan Ramirez
--- NOTE | 2019-10-11 11:44 | XCELERA ---
[id number]
--- NOTE | 2019-10-11 16:05 | Discharge Summary ---
Date of Service October 11, 2019 Admission HPI Per Admitting Provider Mahad Nuno is a 34-year-old male with history of hyperlipidemia presenting with chest discomfort that started yesterday afternoon. Patient states that he was at work at his desk when he developed sudden onset of left- sided chest discomfort, 2-3/10 in severity with radiation down his left arm. Discomfort associated with mild nausea, and diaphoresis. Pain nonpleuritic, non-positional, nonexertional. The discomfort initially lasted 2 hours then reoccurred throughout the day. Presently no chest discomfort. Patient denies fever/chills/cough/shortness of breath/abdominal pain/vomiting/diarrhea/constipation. No personal history of heart disease. No prior stress testing or cardiac intervention. No recent travel or concerns for exposure to COVID-19. On arrival to the ER patient found to be afebrile, hypertensive at 186/113. ER course: Lisinopril 10 mg Principal Diagnosis Non-cardiac chest pain Discharge Exam Constitutional WD/WN, vitals as above Eyes EOM intact bilaterally; no conjunctival abnormality ENMT external ear and nose normal, oropharynx normal Neck trachea midline, no thyromegaly normal visual inspection Respiratory normal respiratory effort, lungs clear to auscultation no respiratory distress Cardiovascular RRR, no murmur, no edema Gastrointestinal (Abdomen) Inspection/Auscultation: abdomen normal to inspection; abdomen not distended Musculoskeletal no cyanosis or clubbing, extremities motor strength 5/5 Skin no rashes, warm and dry Neurologic moves all extremities and awake Psychiatric Orientation: alert, oriented to person and cooperative Discharge Data Allergies Allergy/AdvReac Type Severity Reaction Status Date / Time No Known Allergies Allergy Unverified 10/10/19 22:59 Consultations 10/11/19 01:25 ED Decision to Admit Stat Hospital Course (1) Chest pain: High risk family history. - Troponins were all negative. Exercise stress echo was negative. Discharged on continued statin. (2) Elevated BP without diagnosis of hypertension: Patient with elevated blood pressure upon arrival. He was administered lisinopril 10 mg p.o. x1 dose in the ER with improvement. He does not carry a diagnosis of hypertension Discussed with patient. He has high BPs at home as well upwards of 160/80. - Started lisinopril 10 mg PO QHS. Night-time dosing has been associated with improved outcomes and no increase in side effects. (Bedtime hypertension treatment improves cardiovascular risk reduction: the Hygia Chronotherapy Trial) (3) Dyslipidemia: Chronic. Continue simvastatin Total Time Total Time Spent Total Time Spent (In Minutes): 35 Discharge Plan Discharge Items Patient Disposition: Home - Self-Care Reason For Visit: CHEST PAIN Discharge Diagnosis: Non-cardiac chest pain Activity: Resume your previous activity Non-emergency contact: Primary Care Provider Call non-emergency contact if: your symptoms worsen and your pain is not controlled Follow-up/Referrals: Savannah Castillo MD [Primary Care Provider] - 10/18/19 12:30 pm (You have a follow up on MondayOctober [address] Castillo. Please arrive 15 minutes prior to your appt time, and remember your face mask. If this appt time does not fit your schedule, please call [phone] to reschedule. ) Diet: Regular Addtl Attending Provider Instructions: Mr. Nuno, You were admitted to the hospital with chest pain. Because of your family history, we decided to do a stress test to look at your heart function. In a word, it looked great. You have above average exercise tolerance. Your heart squeeze (called the ejection fraction) is 50-55% which is completely normal. There were no areas that had trouble squeezing. Your heart valves all look terrific. In sum, it was a 100% excellent stress test. This doesn't mean we don't want to keep your heart healthy. Your statin is a good first-line agent to help keep your cholesterol in good range. Your blood pressure at home does seem like it's running a bit high. We are starting you on a low-dose blood pressure medication that will help keep your blood pressure in an optimal range. Please take it at night as this maximizes benefit without any significant downside. Please monitor your blood pressure at home by measuring it once per day in the morning. Please see your PCP in 2 weeks to see how your blood pressure has been running and talk about any further chest pain you might have been having. We do think it is not cardiac, but this still doesn't mean it is not bothersome or something to talk with your PCP about. If the chest pain comes back and stays (meaning for more than an hour or so) OR if it comes along with dizziness, shortness of breath, palpitations, passing out, or other scary symptoms, please call your PCP, call , or come to the hospital. Pending Studies at Discharge: No Stand-Alone Forms: My [facility] [place], Smoking Cessation Medications and DC Order Prescriptions: New lisinopril 10 mg tablet 10 mg PO HS Qty: 30 RF: 0 Changed simvastatin 40 mg tablet 40 mg PO HS Qty: 90 RF: 0 Discharge Orders: Discharge Order (Routine); Ordered 10/11/19 Ordered By: Tyler Bynum Admission Data Admit Date/Time: 10/11/19 02:09 Attending Provider: Tyler Bynum Admit Provider: Afia Lew Primary Care Provider: Savannah Castillo Other Providers: Tyler Bynum Other Interventions: Discharge Summary Assessment (RN) Last Done: 10/11/19 12:39 Coding Level of Care Code 25658 OBS Care - Discharge Diagnoses Chest pain R07.9 Chest pain type: unspecified Elevated BP without diagnosis of hypertension R03.0 Dyslipidemia E78.5
[2019-10-16 13:34] LABS: Babesia microti DNA Not Detected (Not Detected); Ehrlichia chaff DNA Bld Not Detected (Not Detected)
== END 2019-10-11 13:45 | disposition home or self-care (01) ==
LOC: ED 22:50 → 2W 22:50 → SUATTDRO 10-11 02:09 → 2W 10-11 02:42